=== PATIENT | female | born 1975 | race Caucasian/White ===

== ENCOUNTER → 2020-05-24 01:17 | Outpatient (CLI) | payer OTHER, SELFPAY ==
[2020-05-24 19:42] LABS: SARS-CoV-2 RNA PCR Negative
== END ==
PROVIDERS: PCP Family Medicine; Visit Provider Obstetrics & Gynecology
DX: Z01.812 Encounter for preprocedural laboratory examination (principal); Z20.822 Contact with and (suspected) exposure to COVID-19
CPT/HCPCS: C9803; U0003; U0005

== ENCOUNTER 2020-05-28 00:39 | Day surgery (SDC) | payer OTHER, SELFPAY ==
[2020-05-19 15:55] VITALS: BMI 47.8
[2020-05-28] VITALS (11 sets, daily range): BP systolic 120–145; BP diastolic 62–81; PULSE 69–91; RESP 16–20; TEMP 36.2–36.9; O2SAT 93–100
[2020-05-28] MEDS: LACTATED RINGERS 1,000 ML 30 ML IV CONT ×2 (11:08→14:01)
[2020-05-28] MEDS: KETOROLAC 15 MG/ML VIAL (*BKC) IV PUSH (11:44)
[2020-05-28] MEDS: ACETAMINOPHEN 500 MG TABLET 1000 MG PO (11:44)
--- NOTE | 2020-05-28 12:24 | WPDHPUPDATE1 ---
History and Physical Update Update Date/Time: 05/28/20 12:24 History and Physical has been reviewed, including an updated exam of the patient. There are NO changes in the patient's condition. Risks, benefits, and alternatives have been discussed and questions answered. Patient agrees to proceed with procedure.
--- NOTE | 2020-05-28 12:28 | WPDANESEPPF ---
Anes - Initial Pre Proc Eval Procedure: Operation Date: 05/28/20 12:00 Proposed Procedures p Hysteroscopy with Endometrial Ablation, - Tatiana Norton MD s Laparoscopic Bilateral Tubal Sterilization with Cautery - Tatiana Norton MD Date/Time: 05/28/20 12:28 Surgeon: Tatiana Norton MD Pre Op Diagnosis: menorrhaghia Patient Data Age: 44 Gender: F Height: 5 ft 3 in Weight: 123.7 kg Last Vital Signs Temp 36.9 C 05/28/20 10:54 Pulse 91 05/28/20 10:54 Resp 18 05/28/20 10:54 BP 145/81 H 05/28/20 10:54 Pulse Ox 99 05/28/20 10:54 Allergies Allergy/AdvReac Type Severity Reaction Status Date / Time No Known Allergies Allergy Mild Verified 05/28/20 11:10 Home Medications Medication Instructions Recorded Confirmed Type aspirin 81 mg PO DAILY 05/19/20 05/28/20 History cholecalciferol (vitamin D3) 25 mcg PO DAILY 05/19/20 05/28/20 History norgestimate-ethinyl estradiol 1 tablet PO DAILY 05/19/20 05/28/20 History [Sprintec (28)] valacyclovir 1,000 mg PO DAILY PRN 05/19/20 05/28/20 History vitamin B complex [B 1 tablet PO DAILY 05/19/20 05/28/20 History Complex-Vitamin B12] Patient hx anesthesia problems: none Family hx anesthesia problems: none PMFSH Past Medical History Medical History Fever blister Family History Family History Grandparent Diabetes mellitus, Onset Age: 60 Family history of cardiovascular disease Carcinoma of colon Malignant neoplasm of prostate Family history of malignant neoplasm of cervix Family history of malignant neoplasm of uterus Mother Family history of obesity Hypertension Patient's mother is in good health Family history of elevated blood lipids Sibling Patient's brother is in good health Father Family history of cardiovascular disease, Onset Age: 43 Social History Social History Smoking packs per day: 0.5 Smoking cigarettes per day: 10.0 Years smoked: 10 Smoking pack-years: 5.00 Smoking status: Former smoker Tobacco type: cigarettes Alcohol intake: current Last use: 11/26/08 Living arrangements: with family Spiritual care concerns: No Anes - Eval Final PreProcedure Day of Procedure 05/28/20 12:28 Patient weight: morbidly obese Heart: regular rate and rhythm Lungs: clear to auscultation Airway: Mallampati scale class II Neurological: alert and oriented Last oral intake: >/= 8 hours ASA classification: III Emergent: no Anesthetic plan: proceed Anesthesia type and monitoring: general ETT and standard monitoring Informed Consent: The patient's anesthetic plan and its attendant risks and benefits were discussed with the patient/family/POA. Questions were solicited and answers provided to the satisfaction of the patient/family/POA.
--- NOTE | 2020-05-28 13:54 | PM.PROC ---
Procedure Note - Detailed Date of procedure: 05/28/20 Pre-op diagnosis: menorrhaghia Post-op diagnosis: same Procedure performed: Laparoscopic bilateral tubal ligation, Endometrial Ablation Description of procedure: Patient was taken the operating room. She has prepped draped in the dorsal lithotomy position after induction of general anesthesia. A 5 mm abdominal incision was made in left upper quadrant of the abdomen with scalpel. A 5 mm trocars inserted the intra-abdominal cavity under direct visualization of the scope. Pneumoperitoneum was achieved. A 5 mm periumbilical incision was made using a scalpel on the abdominal scan. A 5 mm trocar was inserted the intra-abdominal cavity under visualization of the scope. The fallopian tube was grasped with the bipolar cautery in the ampullary region. It was completely desiccated in a 1.5 cm area of the fallopian tube. This was performed in identical fashion on the contralateral side. The instruments were withdrawn. The pneumoperitoneum was reduced. The trocars were removed. The skin was closed with subcuticular 4 Monocryl. This incisions were covered with Dermabond. Our attention was then turned to the endometrial ablation portion of the procedure. A speculum was placed in the vagina. The cervix was grasped with a tenaculum. The cervix was dilated to approximately 8 mm with Javier dilators. The hysteroscope was inserted. And the below findings were noted. Measurements of the cervix were taken using the uterine sound and the hysteroscope. The intrauterine cavity measurements were entered into the hand piece of the device. The device was inserted the intrauterine cavity. The array was expanded. The balloon cuff was inflated. The uterus was airtight. The energy and safety cycles within initiated. They were completed under 3 minutes. The balloon cuff was collapsed, the array was collapsed, and the device was removed the uterine cavity. the hysteroscope was reinserted and the cavity was well desiccated, it was clearly observed. Hysteroscope was withdrawn. The tenaculum was removed. The speculum was removed. The patient tolerated the procedure well. She was taken to recover room in stable condition. Anesthesia: GETA Surgeon: Tatiana Norton MD Estimated blood loss (mL): 10 Drains: No Packing: No Pathology: none sent Complications: No immediate complications Condition: stable Disposition: PACU Findings: Normal female pelvic anatomy.
[2020-05-28] MEDS: ONDANSETRON INJ 4 MG/2 ML VIAL IV PUSH (14:37)
[2020-05-28] MEDS: SCOPOLAMINE 1.5 MG PATCH TRANSDERM (14:55)
[2020-05-28] MEDS: diphenhydrAMINE HCl INJ 50 MG/ML VIAL 25 MG IV PUSH (14:59)
[2020-05-28] MEDS: fentaNYL CITRATE INJ (*CRX) 100 MCG/2 ML VIAL 25 MCG IV PUSH ×2 (15:07→16:11)
[2020-05-28] MEDS: oxyCODONE HCL (*CRX) 5 MG TAB IR PO (16:04)
[2020-05-28] MEDS: diphenhydrAMINE HCl INJ 50 MG/ML VIAL 12.5 MG IV PUSH (16:32)
== END 2020-05-28 17:15 | disposition home or self-care (01) ==
PROVIDERS: PCP Family Medicine; Visit Provider Obstetrics & Gynecology
PROC: 0U5B8ZZ Destruction of Endometrium, Via Natural or Artificial Opening Endoscopic (ICD-10-PCS; CPT 58563; principal; 2020-05-28 12:00)
PROC: (CPT 58671; 2020-05-28 12:00)
DX: N92.0 Excessive and frequent menstruation with regular cycle (principal); Z30.2 Encounter for sterilization; Z87.891 Personal history of nicotine dependence; E66.01 Morbid (severe) obesity due to excess calories; Z68.42 Body mass index [BMI] 45.0-49.9, adult
CPT/HCPCS: 58563; 58670; A9270; J0330; J1100; J1200; J1885; J2250; J2405; J2704; J2710; J3010; J7030; J7120

== ENCOUNTER 2021-12-25 07:33 | Outpatient (CLI) | payer OTHER, SELFPAY ==
[2021-12-25 08:22] LABS: Hematocrit 42.7 % (37.0-47.0); Hemoglobin 14.2 g/dL (12.0-15.0); Mean Corpuscular HGB Conc 33.3 g/dl (32-36); Mean Corpuscular Hemoglobin 30.1 pg (26-34); Mean Corpuscular Volume 90.7 fl (80-100); Mean Platelet Volume 10.5 fl (7.4-10.4); Platelet Count Result 267 k/mm3 (150-375); Red Blood Count 4.71 M/mm3 (4.2-5.4); Red Cell Distribution Width 14.3 % (11.5-14.5); White Blood Count 8.4 K/mm3 (4.5-10.0)
[2021-12-25 08:31] LABS: Alanine Aminotransferase 22 U/L (6-35); Albumin Level 4.4 g/dL (3.5-5.1); Alkaline Phosphatase 90 U/L (38-126); Anion Gap 9 mmol/L (8-16); Aspartate Amino Transferase 22 U/L (14-36); Bilirubin,Total 0.5 mg/dL (0.2-1.3); Blood Urea Nitrogen 10 mg/dL (7-17); Calcium 10.2 mg/dL (8.4-10.2); Carbon Dioxide 28 mmol/L (22-30); Chloride 101 mmol/L (98-107); Cholesterol 186 mg/dL (0-200); Estimated Glomerular Filt Rate > 60; Glucose 103 mg/dL (65-110); HDL Direct 64 mg/dL; Potassium 3.9 mmol/L (3.4-5.0); Sodium 138 mmol/L (137-145); Triglycerides 73 mg/dL (<150)
[2021-12-25 08:40] LABS: LDL Cholesterol Direct 99 mg/dL
[2021-12-25 08:44] LABS: Appearance Urine Clear (Clear); Bilirubin Urine Negative (Negative); Blood Urine Negative (Negative); Color Urine Yellow (Yellow); Glucose Urine UA Negative (Negative); Ketones Urine Negative (Negative); Leukocyte Esterase Ur Negative LEU/UL (NEGATIVE); Nitrate Urine Negative (Negative); Protein Urine Negative (Negative); Urobilinogen Urine 0.2 mg/dL (<2.0)
[2021-12-25 08:49] LABS: Add Urine Microscopic? NO
== END 2021-12-25 07:34 | disposition home or self-care (01) ==
LOC: ANHLAB 07:35
PROVIDERS: Visit Provider Family Medicine
DX: Z00.00 Encounter for general adult medical examination without abnormal findings (principal); E53.8 Deficiency of other specified B group vitamins; E78.2 Mixed hyperlipidemia
CPT/HCPCS: 36415; 80053; 80061; 81003; 82607; 84443; 85027

== ENCOUNTER 2022-08-19 07:15 | Outpatient (CLI) | payer OTHER, SELFPAY ==
[2022-08-19 08:58] LABS: Anion Gap 4 mmol/L (8-16); Blood Urea Nitrogen 13 mg/dL (7-17); Calcium 9.2 mg/dL (8.4-10.2); Carbon Dioxide 32 mmol/L (22-30); Chloride 101 mmol/L (98-107); Estimated Glomerular Filt Rate > 60; Glucose 92 mg/dL (65-110); Potassium 4.5 mmol/L (3.4-5.0); Sodium 137 mmol/L (137-145)
== END 2022-08-19 07:16 | disposition home or self-care (01) ==
PROVIDERS: Visit Provider Family Medicine
DX: R60.9 Edema, unspecified (principal)
CPT/HCPCS: 36415; 80048

== ENCOUNTER 2023-03-11 13:20 | Outpatient (CLI) | payer OTHER, SELFPAY ==
--- NOTE | ~2023-03-11 | MM_ITS ---
EXAMINATION: MM screening ricardo BI w saul HISTORY: Screening TECHNIQUE: Craniocaudal and mediolateral oblique 3-D tomosynthesis images were obtained and synthetic 2-D images were generated. CAD analysis was submitted and interpreted. COMPARISON: Comparison to multiple prior studies sequentially, with oldest reviewed study dated 11/17. BREAST PARENCHYMAL COMPOSITION: Breast composed of scattered areas of fibroglandular density FINDINGS: There is no evidence of suspicious mass, calcification, or architectural distortion to sugg est malignancy in either breast. There has been no suspicious interval change. IMPRESSION: 1. No mammographic evidence of malignancy. 2. Recommend routine screening mammography in one year. BI-RADS Category 1: Negative Reviewed, dictated and finalized at location A. 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
== END 2023-03-11 13:21 | disposition home or self-care (01) ==
LOC: ANHIMG 13:24
PROVIDERS: PCP Family Medicine; Visit Provider Advanced Practice Midwife
DX: Z12.31 Encounter for screening mammogram for malignant neoplasm of breast (principal)
CPT/HCPCS: 77063; 77067

== ENCOUNTER → 2024-01-16 08:06 | Outpatient (CLI) | payer OTHER, SELFPAY ==
--- NOTE | ~2024-01-16 | XR_ITS ---
Left foot Technique: AP, oblique, and lateral views were obtained. Clinical History: Great toe injury Findings: There is a probable acute, nondisplaced fracture the proximal portion of the distal phalanx of the great toe, with possible intraarticular extension. No other fracture or dislocation seen. Jennie nt spaces are preserved without erosive or degenerative change. Soft tissues are unremarkable. Impression: Suspected acute, subtle, nondisplaced fracture of the distal phalanx of the great toe, as detailed ab jacee. Reviewed, dictated and finalized at location M. Impression: Suspected acute, subtle, nondisplaced fracture of the distal phalanx of the gre at toe, as detailed above.
== END ==
PROVIDERS: PCP Family Medicine; Visit Provider Family Medicine
DX: M79.675 Pain in left toe(s) (principal)
CPT/HCPCS: 73630

== ENCOUNTER 2024-04-13 08:35 | Outpatient (CLI) | payer OTHER, SELFPAY ==
[2024-04-13 10:15] LABS: Basophils Absolute Auto 0.1 K/mm3 (0.0-0.1); Basophils Percent Auto 1.1 % (0.2-1.2); Eosinophils Absolute Auto 0.2 K/mm3 (0-0.3); Eosinophils Percent Auto 1.8 % (0-4.4); Hematocrit 44.8 % (37.0-47.0); Hemoglobin 14.9 g/dL (12.0-15.0); Immature Granulocyte Absolute 0.04 K/mm3 (0.00-0.031); Immature Granulocyte Percent A 0.5 % (0-0.5); Lymphocytes Absolute Auto 1.99 K/mm3 (0.9-3.2); Lymphocytes Percent Auto 22.5 % (18.3-44.2); Mean Corpuscular HGB Conc 33.3 g/dl (32-36); Mean Corpuscular Hemoglobin 29.9 pg (26-34); Mean Platelet Volume 10.8 fl (7.4-10.4); Monocytes Absolute Auto 0.4 K/mm3 (0.1-0.6); Monocytes Percent Auto 4.2 % (2.6-8.5); Neutrophils Absolute Auto 6.2 K/mm3 (1.3-6.7); Neutrophils Percent Auto 69.9 % (45.5-73.1); Platelet Count Result 265 k/mm3 (150-375); Red Blood Count 4.98 M/mm3 (4.2-5.4); Red Cell Distribution Width 13.6 % (11.5-14.5); White Blood Count 8.8 K/mm3 (4.5-10.0)
[2024-04-13 10:32] LABS: Alanine Aminotransferase 16 U/L (6-35); Albumin Level 4.3 g/dL (3.5-5.1); Alkaline Phosphatase 85 U/L (38-126); Anion Gap 9 mmol/L (4-12); Aspartate Amino Transferase 19 U/L (14-36); Bilirubin,Total 0.7 mg/dL (0.2-1.3); Blood Urea Nitrogen 10 mg/dL (7-17); Calcium 9.5 mg/dL (8.4-10.2); Carbon Dioxide 28 mmol/L (22-30); Chloride 101 mmol/L (98-107); Cholesterol 188 mg/dL (0-200); Estimated Glomerular Filt Rate > 60; Glucose 83 mg/dL (65-110); Sodium 138 mmol/L (137-145); Triglycerides 61 mg/dL (<150)
[2024-04-13 10:41] LABS: HDL Direct 71 mg/dL
[2024-04-13 10:50] LABS: LDL Cholesterol Direct 96 mg/dL
[2024-04-13 11:07] LABS: Free T4 Free Thyroxine 0.94 ng/dL (0.78-2.19)
[2024-04-13 11:17] LABS: Vitamin D 25 Hydroxy < 12.8 ng/mL
[2024-04-14 10:09] LABS: Progesterone 0.5 ng/mL
[2024-04-14 16:24] LABS: FSH 20.2 mIU/mL; LH 21.7 mIU/mL
--- OUTSIDE RECORDS SUMMARY | 2024-04-19 05:38 | XMS_ITS | Data Portability ---
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 Patient will come back in a year unless there are new symptoms. Suggest Calcium with Vitamin D if not eating in diet. Patient advised to get annual flu shot. Recommend yearly physicals and preform monthly breast exams. Genetic testing is available for patients with family history of cancer. Engage in safe sexual practices, use condoms. Encouraged to have daily exercise. Avoid tobacco and illicit drugs, moderation of alcohol. If BMI greater than 25 dietary consult advised. If you have any questions please call or email. to call if desires appt with beer to discuss hysterectomy Not available 06/26/2021 14:15:01 07/07/2022 07/07/2022 Suggest Calcium with Vitamin D if not eating in diet. Patient advised to get annual flu shot. Recommend yearly physicals and preform monthly breast exams. Genetic testing is available for patients with family history of cancer. Engage in safe sexual practices, use condoms. Encouraged to have daily exercise. Avoid tobacco and illicit drugs, moderation of alcohol. If BMI greater than 25 dietary consult advised. If you have any questions please call or email. Annual gynecological exam performed. Patient will come back in a year unless there are new symptoms. [email or web address] Not available 07/07/2022 13:04:20 03/09/2024 03/09/2024 Annual gynecological exam performed. Patient will come back in a year unless there are new symptoms. Take Calcium with Vitamin D 1200mg daily if not receiving in daily diet. It is strongly advised to have an annual flu shot and up can obtain at most pharmacies. If you have not had a TDap shot in the last 10 years you should obtain one as well. Discussed with patient & provided with information regarding Gardisil vaccine to prevent the 4 strains for HPV that cause cervical cancer if under age 26. Encourage safe sexual practices, to use condoms and limit partners if not already in a monogamous relationship. Do monthly self breast exams. Have mammogram yearly or every other year depending on family history. BRCA testing is now available for patients with strong genetic history of female cancer. If interested contact the office. Engage in daily exercise of low impact aerobic exercise 45-60 minutes 4-5 times weekly. Avoid tobacco and illicit drugs as well as using moderation with alcohol intake less than 1-2 8 oz beverages daily. This lifestyle behavior pattern will lead to less health conditions and longer life span. If BMI greater than 25 weight watchers or dietary consult advised. Patient received above instructions, and questions have been answered. If you have any questions please call or respond to this email. Patient was made aware of the patient portal and may obtain a paper copy of today's plan if desired. pap collected Not available 03/09/2024 12:09:15 Plan of Treatment Reminders Order Date Submit Date Provider Last Modified By Organization Details Last Modified Time Details Appointments [facility] 2024 10:00A M Dotty Anand CNM Not available Not available Not available Lab CBC w/ auto diff [email or web address] [place] [address] (Lab), [address] [place] [address], [id number], 04/02/2024 12:59:43 CMP, serum or plasma 2023 024 [facility] (Lab), [address] [place] [address], [id number], 04/13/2024 13:33:54 lipid panel, serum 2023 024 [facility] (Lab), [address] [place] [address] [place], [address], 04/13/2024 15:59:17 vitamin D, 25-hydrox y, total, serum [address] (Lab), [address] [place] [address] [address], [place], [address], 04/02/2024 13:00:18 lh + FSH, serum 2023 024 [facility] (Lab), [address] [place] [address] [address], [place], [address], 04/15/2024 10:35:51 progester one, serum [address] (Lab), [address] [place] [address] [address], [place], [address], 04/02/2024 13:00:45 TSH + free T4, serum 2023 024 [facility] (Lab), [address] [place] [address] [address], [place], [address], 04/13/2024 15:59:17 Referral None recorded. Procedures None recorded. Surgeries None recorded. Imaging MAMMO, screening , digital, bilateral 2022 023 [facility], [address], [place], [address], 03/11/2023 14:57:01 MAMMO, screening , bilateral [address] - [facility], [address], [place], [address], 03/09/2024 12:31:50 Medication Orders None recorded. Patient TargetsNo targets recorded. Patient InstructionsNo instructions recorded. Reason for Referral None Reported. Results Created Date Observation Date Name Description Value Unit Range Abnormal Flag Note LastModifiedBy Organization Detail LastModifiedTime 05/09/19 21 05/09/2020 pregn viridiana test, urine HCG negati ve Not Available [place], [place], [address], 05/09/2020 14:22:02 07/08/19 23 07/07/2022 IMAGE GUIDE D PAP AND HPV REGAR DLESS image guided Pap, HPV regardless of Pap result SEE RESULT S BELOW CASE REPOR T: Cytol ogy Gynec ologi lexus Repor t Case: [id number] Autho martínez alexys Provi gaby: Dotty Clayton, SHANTAL Colle cted: 07/07 1724 Order ing Locat ion: [place] [facility] Recei jacek: 07/08 0624 First Scree n: Pradeep beltre, Conner ayala, CT Rescr een: Megan Thomas , CT Speci men: Carlyn ag Pap - Image d, Cervi x STATE MENT OF ADEQU ACY: Satis facto ry for evalu ation Trans forma tion zone compo nent absen t The absen ce of an endoc ervic al compo nent was confi rmed by an addit ional carlyn ner. FINAL DIAGN OSIS: Negat stefan for Intra epith elial Lesio n or Malvioleta scott (NIL) . Shift in manasa sugge stive of bacte rial vagin osis. Elect deepti prabhakar d by Megan Thomas , CT on 2022 at 11:36 AM ----- ----- ----- ----- ----- ----- ----- ----- ----- ----- ----- ----- ----- ----- ----- ----- ----- ---- HPV RESUL TS: HPV mRNA E6/E7 : No HPV mRNA Detec ruby NOTE: This high risk HPV mRNA assay detec ts fourt een high- risk HPV types (16, 18, 31, 33, 35, 39, 45, 51, 52, 56, 58, 59, 66, 68) witho ut diffe renti ation . COMME NT: This speci men was revie wed by a Cytot echno logis t and/o r Patho logis t (as indic ated in this repor t) after evalu ation using the Thinp rep Imagi ng Syste m. CLINI LEXUS INFOR MATIO N: Menst rual Statu s: LMP (if appli cable ): Clini lexus Histo ry/Pr eviou s Pap: Type of Neopl lori (if appli cable ): Signi fican t Clini lexus Findi ngs: Other Histo ry: Hormo susi (if appli cable ): PAP EDUCA SINDHU L NOTE: The Pap Test is a scree kimberli test with an inher ent false negat stefan rate. Liqui d-bas ed sampl ing may decre ase, but will not elimi gustavo, false negat stefan resul ts. A negat stefan resul t does not precl ude the prese nce and/o r devel opmen t of disea se, since the prese nce of abnor mal cells in the sampl e depen ds on the locat ion of the lesio n and sampl ing techn ique. Aleksandr nued regul ar scree kimberli is the best metho d of cance r preve ntion . If repor ruby cytol ogic findi ng do not corre late with physi lexus and/o r histo rical findi ngs, furth er inves tigat ion is recom es d, as clini santhosh maya nted. Not Available [facility] (Lab) [address], [place], [address], 07/12/2022 12:39:42 03/09/20 24 03/09/2024 IMAGE GUIDE D PAP AND HPV REGAR DLESS image guided Pap, HPV regardless of Pap result SEE RESULT S BELOW CASE REPOR T: Cytol ogy Gynec ologi lexus Repor t Case: [id number] Autho martínez reardon Provi gaby: Dotty Clayton, SHANTAL Roberts cted: 03/09 1633 Order ing Locat ion: [place] [facility] [place] Recei jacek: 03/10 0212 First Scree n: Noora ni, Moham ed, CT Speci men: Scree kimberli Pap - Image d, Cervi x STATE MENT OF ADEQU ACY: Satis facto ry for evalu ation Trans forma tion zone compo nent absen t ----- ----- ----- ----- ----- ----- ----- ----- ----- ----- ----- ----- ----- ----- ----- ----- ----- ---- FINAL DIAGN OSIS: Negat stefan for Intra epith elial Lesio n or Bina scott (NIL) . Shift in manasa sugge stive of bacte rial vagin osis. Elect deepti hand by Clarice morris, CT on 03/19 at 2110 EDGE GRINDER ----- ----- ----- ----- ----- ----- ----- ----- ----- ----- ----- ----- ----- ----- ----- ----- ----- ---- HPV RESUL TS: HPV mRNA E6/E7 : No HPV mRNA Detec ruby NOTE: This high risk HPV mRNA assay detec ts fourt een high- risk HPV types (16, 18, 31, 33, 35, 39, 45, 51, 52, 56, 58, 59, 66, 68) witho ut diffe renti ation . COMME NT: Slide scree nawaf cullena lly due to rejec tion by the Thinp rep Imagi ng Syste m. CLINI LEXUS INFOR MATIO N: Menst rual Statu s: LMP (if appli cable ): Clini leuxs Histo ry/Pr eviou s Pap: Type of Neopl lori (if appli cable ): Signi ficted t Clini lexus Findi ngs: Other Histo ry: Hormo susi (if appli cable ): PAP EDUCA SINDHU L NOTE: The Pap Test is a scree kimberli test with an inher ent false negat stefan rate. Liqui d-bas ed sampl ing may decre ase, but will not elimi gustavo, false negat stefan resul ts. A negat stefan resul t does not precl ude the prese nce and/o r devel opmen t of disea se, since the prese nce of abnor mal cells in the sampl e depen ds on the locat ion of the lesio n and sampl ing techn ique. Aleksandr nued regul ar scree kimberli is the best metho d of cance r preve ntion . If repor ruby cytol ogic findi ng do not corre late with physi lexus and/o r histo rical findi ngs, furth er inves tigat ion is recom es d, as clini santhosh maya nted. Not Available [facility] (Lab) [address], [place], [address], 03/19/2024 22:14:25 03/11/20 23 03/11/2023 MAMMO , scree kimberli, digit al, bilat eral No observ ation record ed. [facility] [address], [place], [address], 03/11/2023 16:48:36 Result Notes None recorded. Problems Name Problem SNOMED Code Status Onset Date Resolution Date Notes Provider Name and Address Organization Details Recorded Time SNOMED CT Concept Completed 201704/04/2020 Encntr for general adult medical exam w/o abnormal findings ;Recorde d Elsewher e: No Locat ion: [facility] S ource: EHR Food And Nutrition Supervisor gauri: N Dhaval ce ID: 0001 Michel lable Time: 03:30:00 PM Loree solis [facility] 11:33:24 Removal of intraute rine device Completed 201104/04/2020 REMOVAL OF IUD;Jose rded Elsewher e: No Locat ion: [facility] S ource: EHR Food And Nutrition Supervisor gauri: Dmitry Puentes ce ID: 0001 Michel lable Time: 02:00:00 PM Loree solis [facility] 11:33:17 Body mass index 30+ - obesity [id number] Completed 201704/04/2020 Body mass index (BMI) 45.0-49. 9, adult;Re corded Elsewher e: No Locat ion: [facility] S ource: EHR Food And Nutrition Supervisor gauri: N Practi ce ID: 0001 Michel lable Time: 03:30:00 PM Loree Morales irma [facility] 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 11:35:27 Screenin g for malignan t neoplasm of rectum Completed 201504/04/2020 Encounte r for screenin g for malignan t neoplasm of rectum;R ecorded Elsewher e: No Locat ion: [facility] S ource: EHR Food And Nutrition Supervisor gauri: N Obieti ce ID: 0001 Michel lable Time: 03:00:00 PM Loree solis [facility] 11:33:[address] Concept Completed 201504/04/2020 Well woman check w/ abnormal finding; Recorded Elsewher e: No Locat ion: [facility] S ource: EHR Food And Nutrition Supervisor gauri: N Practi ce ID: 0001 Michel lable Time: 03:00:00 PM Loree Morales irma [facility] 11:33:28 Screenin g for malignan t neoplasm of cervix Completed 201104/04/2020 Screenin g for malignan t neoplasm s of the cervix;R ecorded Elsewher e: No Locat ion: [facility] S ource: EHR Food And Nutrition Supervisor gauri: N Practi ce ID: 0001 Michel lable Time: 02:00:00 PM Loree Morales irma, [facility] 1 11:33:19 Adult health examinat ion Completed 201404/04/2020 ROUTINE MEDICAL EXAM;Rec orded Elsewher e: No Locat ion: [facility] S ource: EHR Food And Nutrition Supervisor gauri: N Practi ce ID: 0001 Michel lable Time: 03:30:00 PM Loree Morales irma, [facility] 11:33:10 Obesity [id number] Completed 201304/04/2020 Obesity; Recorded Elsewher e: No Locat ion: [facility] S ource: EHR Food And Nutrition Supervisor gauri: N Practi ce ID: 0001 Michel lable Time: 11:30:00 AM Loree Morales irma, [facility] 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 1 11:35:24 Acute vaginiti s [id number] Completed 201504/04/2020 Vaginiti s;Record ed Elsewher e: No Locat ion: [facility] S ource: EHR Food And Nutrition Supervisor gauri: N Practi ce ID: 0001 Michel lable Time: 03:15:00 PM Loree solis, [facility] 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 4 11:33:17 Problem Notes None recorded. Procedures Surgical History Date Name Laterality Status Provider Name and Address Organization Details Recorded Time 03/09/20 24 Date of Last Pap Smear completed Loree Morales [facility] 03/09/2024 11:34:02 03/11/20 23 Date of Last Mammogram completed Loree Morales [facility] 03/09/2024 11:34:44 05/29/19 21 LAPAROSCOPIC TUBAL LIGATION AND ABLATION (SURG) completed Lesli Mccrary [facility] 05/29/2020 11:39:44 05/09/19 21 Endometrial Biopsy completed Baron Smith MD [address], [place], [address], [facility] 05/09/2020 14:23:28 07/12/19 10 section completed Loree Morales [facility] 04/04/2020 19:34:59 Imaging Results Imaging Date Name Status LastModified by Organiz ation Details LastModified Time 03/11/2023 MAMMO, screening, digital, bilateral completed [facility] [address], [place], [address], 03/11/2023 16:48:36 Procedure Notes None recorded. Medical Equipment None Reported. Allergies No known drug allergies Medications Name Sig Start Date Stop Date Status Note LastModified by Organization Details LastModified Time prednison e 10 mg tablet 03/09 completed Not Available Not Available Not Available azithromy wilder 250 mg tablet TAKE 2 TABLETS BY MOUTH ON DAY 1, AND THEN TAKE 1 TABLET BY MOUTH ONCE A DAY ON DAY 2 THROUGH DAY 5 07/07 completed Not Available Not Available Not Available hydrocort isone valerate 0.2 % topical cream 06/26 completed Not Available Not Available Not Available valacyclo vir 1 gram tablet TK 1 T PO D active Not Available Not Available No t Available hydrocodo ne 5 mg-acetam inophen 325 mg tablet TAKE 1 TO 2 TABLETS BY MOUTH EVERY 4 HOURS NEEDED FOR PAIN (MAX 8 TABLETS PER DAY) 06/26 completed Not Available Not Available Not Available meloxicam 15 mg tablet TAKE 1 TABLET BY MOUTH DAILY NEEDED FOR PAIN. DO NOT. START UNTIL ALL TAKEN WITH PREDNISO NE active Not Available Not Available No t Available prednison e 20 mg tablet 06/26 completed Not Available Not Available Not Available Diflucan 150 mg tablet take 1 tablet (150MG) by oral route once 11/02 completed Prescrib ed Elsewher e: No Locat ion: [facility] odify By: christofer cortez DateTime : 04/15/19 12 02:00:46 PM Not Available Not Available Not Available ciproflox acin 500 mg tablet TAKE 1 TABLET BY MOUTH EVERY 12 HOURS 03/09 completed Not Available Not Available Not Available sulfameth oxazole 800 mg-trimet hoprim 160 mg tablet TAKE 1 TABLET BY MOUTH EVERY 12 HOURS 07/07 completed Not Available Not Available Not Available triamcino lone acetonide 0.1 % topical cream APPLY CREAM EXTERNAL LY TWICE DAILY NEEDED FOR ITCHING 03/09 completed Not Available Not Available Not Available Metrogel Vaginal 0.75 % (37.5 mg/5 gram) insert 1 applicat orful by vaginal route every day at bedtime 02/05 completed Prescrib ed Elsewher e: No Locat ion: [facility] By: reba Dodge ncounter DateTime : 06/24/19 16 10:29:51 AM Not Available Not Available Not Available nystatin 100,000 unit/gram topical cream APPLY CREAM TOPICALL Y TWICE DAILY 03/09 completed Not Available Not Available Not Available Ortho Tri-Cycle n (28) 0.18 mg(7)/0.2 15 mg(7)/0.2 5 mg(7)-35 mcg tablet take 1 tablet by oral route every day 02/20 completed Prescrib ed Elsewher e: No Locat ion: [facility] By: royce packerunter DateTime : 02/02/20 18 03:30:00 PM Not Available Not Available Not Available Asprin Ec Low Dose 81 mg tablet,de layed release Take 1 tablet every day by oral route. 06/26 completed Not Available Not Available Not Available Sprintec (28) 0.25 mg-35 mcg tablet TAKE 1 TABLET BY MOUTH ONCE DAILY 06/26 completed Not Available Not Available Not Available Vitals Date Recorded Body height Body mass index (BMI) Body weight Systolic blood pressure Diastolic blood pressure Provider Name and Address Organization Details Last Updated DateTime 06/06/2020 160.02 cm 49.1 kg/m2 689372.0 9 g 137 mm[Hg] 84 mm[Hg] Andreina Harmon [facility] 1 11:43:27 Date Recorded Body height Body mass index (BMI) Body weight Systolic blood pressure Diastolic blood pressure Provider Name and Address Organization Details Last Updated DateTime 06/26/2021 160.02 cm 49.1 kg/m2 427046.0 9 g 146 mm[Hg] 85 mm[Hg] Loree Morales [facility] 2 13:59:54 Date Recorded Body height Body mass index (BMI) Body weight Systolic blood pressure Diastolic blood pressure Provider Name and Address Organization Details Last Updated DateTime 07/07/2022 160.02 cm 48.9 kg/m2 135325.4 9 g 134 mm[Hg] 76 mm[Hg] Loree Morales [facility] 3 13:04:39 Date Recorded Body height Body mass index (BMI) Body weight Systolic blood pressure Diastolic blood pressure Provider Name and Address Organization Details Last Updated DateTime 03/09/2024 160.02 cm 47.3 kg/m2 687706.1 6 g 150 mm[Hg] 85 mm[Hg] Loree Morales [facility] 4 11:32:25 Social History Question Answer Notes LastModified by Organizat ion Details LastModified Time Tobacco Smoking Status [facility] 07/07/2022 12:24:58 Do You Have An Advance Directive? No Information not available 06/06/2020 What Is Your Level Of Alcohol Consumption? Occasional [email or web address] Information not available 04/04/2020 How Many Years Have You Consumed Alcohol? 24 Information not available 06/06/2020 Are You Blind Or Do You Have Difficulty Seeing? No Information not available 06/06/2020 What Is Your Level Of Caffeine Consumption? Moderate Information not available 06/06/2020 How Much Tobacco Do You Chew? None Information not available 06/06/2020 In The 14 Days Before Symptom Onset, Have You Had Close Contact With A Laboratory-confir med COVID-19 While That Case Was Ill? No Information not available 06/06/2020 In The 14 Days Before Symptom Onset, Have You Had Close Contact With A Person Who Is Under Investigation For COVID-19 While That Person Was Ill? No Information not available 06/06/2020 Have You Been To An Area Known To Be High Risk For COVID-19? No Information not available 06/06/2020 Are You Deaf Or Do You Have Serious Difficulty Hearing? No Information not available 06/06/2020 What Type Of Diet Are You Following? REGULAR Information not available 06/06/2020 Do You Or Have You Ever Used E-cigarettes Or Vape? Never Used Electronic Cigarettes [email or web address] Information not available 07/07/2022 What Is The Highest Grade Or Level Of School You Have Completed Or The Highest Degree You Have Received? 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 No Information not available 06/06/2020 What Was The Date Of Your Most Recent Tobacco Screening? 03/09/2024 [email or web address] Information not available 03/09/2024 Do You Use Protection During Sex? No Information not available 06/06/2020 Do You Use Your Seat Belt Or Car Seat Routinely? Yes Information not available 06/06/2020 Do You Have Smoke And Carbon Monoxide Detectors In Your Home? Yes Information not available 06/06/2020 Do You Or Have You Ever Used Smokeless Tobacco? Never Used Smokeless Tobacco [email or web address] Information not available 07/07/2022 How Much Tobacco Do You Smoke? No [email or web address] Information not available 04/04/2020 Do You Feel Stressed (tense, Restless, Nervous, Or Anxious, Or Unable To Sleep At Night)? [id number] Information not available 06/06/2020 Do You Use Any Illicit Or Recreational Drugs? No Information not available 06/06/2020 Do You Use Sunscreen Routinely? Yes Information not available 06/06/2020 Have You Used IV Drugs? No Information not available 06/06/2020 Sex: Unknown Functional Status Question Answer Note LastModified by Organizat ion Details LastModified Time Do you have difficulty walking or climbing stairs? No [email or web address] Information not available 07/07/2022 Are you able to walk? YESWOREST Information not available 06/06/2020 Are you able to care for yourself? Yes [email or web address] Information not available 07/07/2022 Do you have difficulty dressing or bathing? No [email or web address] Information not available 07/07/2022 What is your exercise level? Occasional [email or web address] Information not available 04/04/2020 Mental Status None recorded. Family History Relationship Description Onset Age of this Age Resolved Age Notes LastModified by Organization Details LastModified Time Maternal Grandmother Malignant neoplasm of uterus Not available 2020 09:51:35 Maternal Grandmother Malignant tumor of ovary Not available 2020 09:51:35 Maternal Grandmother Malignant tumor of colon Not available 2020 09:51:35 Maternal Grandmother Malignant neoplasm of uterus [email or web address] Not available 2023 10:50:34 Maternal Grandmother Malignant tumor of colon [email or web address] Not available 2023 10:50:34 Maternal Grandmother Malignant tumor of ovary [email or web address] Not available 2023 10:50:34 Maternal Grandfather Carcinoma of prostate [email or web address] Not available 2023 10:50:34 Mother Hypertensive disorder Not available 2020 09:51:35 Mother Hyperlipidem ia [email or web address] Not available 2023 10:50:34 Mother Hypertensive disorder [email or web address] Not available 2023 10:50:34 Father Hypertensive disorder Not available 2020 09:51:35 Father Heart disease Not available 2020 09:51:35 Father Diabetes mellitus Not available 2020 09:51:35 Father Heart disease [email or web address] Not available 2023 10:50:34 Father Diabetes mellitus [email or web address] Not available 2023 10:50:34 Father Hypertensive disorder Not available 2023 10:50:34 Paternal Grandfather Heart disease Not available 2020 09:51:35 Paternal Grandfather Congestive heart failure Not available 2023 10:50:34 Paternal Grandfather Heart disease [email or web address] Not available 2023 10:50:34 Paternal Grandmother Heart disease Not available 2020 09:51:35 Paternal Grandmother Congestive heart failure [email or web address] Not available 2023 10:50:34 Paternal Grandmother Heart disease [email or web address] Not available 2023 10:50:34 Maternal Uncle Malignant tumor of lung Not available 2020 09:51:35 Maternal Uncle Malignant tumor of lung [email or web address] Not available 2023 10:50:34 Paternal Uncle Malignant tumor of lung Not available 2020 09:51:35 Paternal Uncle Malignant tumor of lung Not available 2023 10:50:34 Medical History Condition Response Allergies (Food, seasonal, environmental ) N Other N Breast Cancer N Drug/Latex Allergies/Reactions N Blood Transfusion N Dermatologic Disorders N Lung Disease N Defects or Inherited Disease N Breast Problem N Gestational Diabetes N Hematologic disorders N Anesthesia Complications N History of STI Y Deep Vein Thrombosis N Polycystic ovary syndrome N Anxiety Disorder N Autoimmune disease N Arthritis N Infertility N Polyps N Acid Reflux (GERD) N History of abnormal pap N Cancer N Stroke N Varicosities N Neurologic/Epilepsy N Endometriosis N High Cholesterol N Headaches N Fibromyalgia N Kidney Disease N Heart Problems N Kidney or Bladder Problems N Thyroid Problems N GI Problems N Eating Disorder N Anemia N Art (IVF or FET) N Psychiatric Illness N Ovarian Cancer N Diabetes N Pulmonary (TB, Asthma) N Hepatitis/Liver Disease N Eczema N Urinary Tract Infection N Abuse/Domestic Violence N Asthma N Trauma/Violence N Depression/ depression N Heart Disease N Pre-Eclampsia N Hypertension N Osteoporosis N Thrombophilias N Gynecological History Statement/Question Response Date of Last Mammogram 03/11/2023 Date of LMP 03/05/2024 On BCP's at Conception? N Was last menstrual period normal N STIs/STDs Y HPV Vaccine N Duration of Flow (days) 5 Current Control Method Tubal Ligat ion Age at First Child 18 Date of control 05/28/2020 Frequency of Cycle (Q days) 29 Sexually Active? Y Date of DEXA bone scan Age of first menstrual cycle 12 Date of Last Pap Smear 03/09/2024 Sexual Problems? N Desired Control Method Ablation LMP Definite N Obstetrics History GPAL:G 2 P 2 0 0 2 Type Value Full Term 2 Living 2 Total 2 Past Encounters Encounter ID Performer Location Encounter Start Date Encounter Closed Date Diagnosis/Indication Diagnosis SNOMED-CT Code Diagnosis ICD10 Code Diagnosis Note [id number] Dotty Anand CNM [place] [address],[facility] [place] [address] 04/04/2020 10:46:21 04/04/2020 14:32:04 Gynecologic examination 75746000 Z01.419 Irregular periods 840153 07 N92.6 [id number] [facility] [address],[facility] [place] [address] 04/18/2020 12:26:21 04/18/2020 13:30:38 Abnormal uterine bleeding [id number] 9100 N93.9 [id number] Baron Smith MD [place] [address],[facility] [place] [address] 05/02/2020 09:40:54 05/02/2020 10:32:21 Menorrhagia 961601179 N92.0 this patient is a 44-year-ol d female presents for surgical consultati on. She is interested in endometria l ablation. Patient is currently on oral contracept stefan pills. She is aware that there is risk associated with this. She does have irregular bleeding off of oral contracept stefan pills. She has patent fallopian tubes. Her does not have a vasectomy. She has very heavy bleeding. She has accidents when she is off of oral contracept stefan pills. She changes pad or tampon every hour. It has affected her quality of life and activities of daily living. We talked about endometria l ablation in detail. We reviewed a video of the procedure. I explained out work. I explained the tubal ligation procedure. We talked about her abnormal bleeding. We talked about etiology of anovulator y bleeding. We talked about multiple complex concepts. We agreed to proceed with endometria l ablation and laparoscop ic bilateral tubal ligation. This will be scheduled at the hospital. Female sterilization 608 74195 Z30.2 [id number] Baron Smith MD [place] [address] [address] 05/09/2020 13:49:02 05/09/2020 14:28:24 Screening procedure 37985025 Z13.9 Menorrhagia 686680052 N9 2.0 endometria l biopsy performed. The patient tolerated it well. [id number] Baron Smith MD [place] [address] [address] 05/23/2020 12:16:29 05/23/2020 15:00:12 Menorrhagia 799729926 N92.0 endometria l biopsy performed. The patient tolerated it well. Female sterilization 608 10402 Z30.2 this patient is a 44-year-ol d female with menorrhagi a and unwanted fertility. We have agreed to perform laparoscop ic bilateral tubal ligation and endometria l ablation. She understand s the risk, benefits, and alternativ es. She has completed the informed consent process isn't ready to proceed. Additional precaution lópez measures were taken to minimize potential exposure to the Covid-19 virus during this patient? s visit, including available hand director of diagnostic imaging upon arrive, temperatur e check and being asked a series of screening questions. All staff wore face coverings during this encounter, as well as provided additional cleaning and sanitizing of all surfaces, including countertop s, pens, chairs, door handles, light switches, etc, prior to and following the patient? s visit. [id number] Baron Smith MD [place] [address],[place] [address] 05/29/2020 11:09:40 05/29/2020 11:11:26 [id number] Baron Smith MD [place] [address],[place] [address] 06/06/2020 11:37:01 06/06/2020 12:39:31 Postoperative care [id number] Z48.89 this patient is a 44-year-ol d female presents for postop follow-up. She is 1 week postop from laparoscop ic bilateral tubal ligation, endometria l ablation, hysterosco py. She is recovering normally. She has no complaints . She has a watery vaginal discharge that is resolving. She will follow-up as needed. [id number] Dotty Anand CNM [place] [address],[place] [address] 06/26/2021 13:35:16 06/26/2021 14:22:48 Gynecologic examination [id number] Z01.419 [id number] [facility] [address],[place] [address] 07/07/2022 12:23:00 07/07/2022 13:34:55 Gynecologic examination 84632342 Z01.419 Dysmenorrhea 161105462 N 94.6 plans hysterecto my consult with dr. smith [id number] Dotty Anand CNM [place] [address],[place] [address] 03/09/2024 10:43:08 03/09/2024 12:31:50 Screening mammography 14006023 Z12.31 Gynecologi c examination 42098269 Z01.419 Routine gy necologic examination done [id number] 9101 Z01.419 Z11.51 Health Concerns Section Related Observation LastModified by Organization Detai ls LastModified Time None Recorded Concern Status LastModified by Organization Details LastModified Time None Recorded Advance Directives Directive N: Payers Encounter Date Sequence Insurance Name Policy Number Policy Wolff Covered Member ID Wolff Member ID Guarantor Name 05/28/2020 1 [facility] ([facility] [id number] Loida K Orasco [id number] Loida K Orasco 06/06/2020 1 [facility] (O) [id number] Loida K Orasco [id number] Loida K Orasco 06/26/2021 1 [facility] ([facility]) [id number] Loida K Orasco [id number] Loida K Orasco 07/07/2022 1 [facility] (O) [id number] Loida K Orasco [id number] Loida K Orasco 03/09/2024 1 [facility] ([facility]) [id number] Loida K Orasco [id number] Loida K Orasco Notes Date Note Type Note Provider Name and Address Organization Details Recorded Time 06/06/2020 text/html this patient is a 44-year-old female presents for postop follow-up. She is 1 week postop from laparoscopic bilateral tubal ligation, endometrial ablation, hysteroscopy. She is recovering normally. She has no complaints. She has a watery vaginal discharge that is resolving. She will follow-up as needed. Baron Smith MD [address], [place], [address], [facility] 06/06/2020 12:14:34 06/26/2021 text/html Annual GYNReport ed bypatient.Menstrua l cycle:Normal menses Urinary symptoms:No hematuria; No incontinence Vulva:No genital lesion Vagina:Normal vaginal discharge Breast:No breast pain; No breast lump; No nipple discharge Current Contraception:Tuba l ligation Sexual complaints:No sexual complaints; No pain during intercourse; Normal libido Menopausal Symptoms:No menopausal symptoms; Normal vaginal lubrication Psychological symptoms:No depression; No anxiety; No PMDD Preventive measures:Encourage self breast examination; Encourage regular exercise; Encourage no tobacco use; Encourage regular mammograms starting age 40Notes:increased cramping since alation still heavy shorter in duration Dotty Anand CNM [address], [place], [address], [facility] 06/26/2021 14:16:09 07/07/2022 text/html Annual GYNReport ed bypatient.History: no change in interval history Menstrual cycle:heavy and crampy periods post ablation Breast:No breast pain; No breast lump; No nipple discharge Sexual complaints:No sexual complaints; No pain during intercourse; Normal libido Menopausal Symptoms:No menopausal symptoms; Normal vaginal lubrication Psychological symptoms:No depression; No anxiety; No PMDD Preventive measures:Encourage self breast examination; Encourage regular exercise; Encourage no tobacco use; Encourage regular mammograms starting age 40Notes:due for mammogram, Radha Swain[facility]ty [facility], [facility] 02/07/2023 14:21:09 03/09/2024 text/html Annual GYNReport ed bypatient.Menstrua l cycle:Severe dysmenorrhea Urinary symptoms:No hematuria; No incontinence Vulva:No genital lesion Vagina:Normal vaginal discharge Breast:No breast pain; No breast lump; No nipple discharge Sexual complaints:No sexual complaints; No pain during intercourse; Normal libido Menopausal Symptoms:No menopausal symptoms; Normal vaginal lubrication Psychological symptoms:No depression; No anxiety; No PMDD Preventive measures:Encourage self breast examination; Encourage regular exercise; Encourage no tobacco use; Encourage regular mammograms starting age 40; Followed with yearly pap smears; Mammogram performed within the past yearNotes:dint see beer for dysmenorrhea no time with hockey, would like hormones checked, cycle about 50 days apart last month Dotty Anand, [facility] [address], [place], [address], [facility] 03/09/2024 12:11:49 OBGyn Episode Ob Episode Information Episode Created Date Number of Fetuses Patient Bloodtype Patient rh Status Prepregnancy Weight lbs Domestic Partner Domestic Partner Phone Father Name Thimble [employer] Operator Status 04/04/19 21 1 CLOSED Fetus Data First Name Last Name Admitted to NICU Weight (g) Sex Living Outcome Pediatric Complications Fetus ID Race Codes Race Delivery Type 3742.13 4 F Full Term [id number] Vaginal Delivery Erwin Calculation Initial Erwin Date Initial Exam Date Initial Exam Provider Initial Ultrasound Date Last Menstrual Period Date Ultra Sound Weeks Gestation 0 Eighteen To Twenty Week Erwin Update Ultra Sound Date Fundal Height At Umbil Quickening Date Ultra Sound Latest Weeks Gestation Final Erwin Confirmed By Final Erwin Confirmed Date Final Erwin Date Ultra Sound Latest Days Gestation 0 0 Menstrual History Last Menstrual Date Menses Monthly On Bcp Conception Prior Menses Frequency Hcg Plus Date Menarche Onset Age Delivery Information Delivery Date Delivery Type Labor Anesthesia Weeks Gestation Incision Type Labor Labor Length Hrs Delivered By Post Complications Tubal Sterilization Discharge Date Comments 5 40 Discharge Information Feeding Method Contraceptive Method Maternal HG B and HCT Levels Ob Episode Information Episode Created Date Number of Fetuses Patient Bloodtype Patient rh Status Prepregnancy Weight lbs Domestic Partner Domestic Partner Phone Father Name Thimble Press Operator Status 04/04/19 21 1 CLOSED Fetus Data First Name Last Name Admitted to NICU Weight (g) Sex Living Outcome Pediatric Complications Fetus ID Race Codes Race Delivery Type 4252.42 5 M Full Term [id number] Primary Erwin Calculation Initial Erwin Date Initial Exam Date Initial Exam Provider Initial Ultrasound Date Last Menstrual Period Date Ultra Sound Weeks Gestation 0 Eighteen To Twenty Week Erwin Update Ultra Sound Date Fundal Height At Umbil Quickening Date Ultra Sound Latest Weeks Gestation Final Erwin Confirmed By Final Erwin Confirmed Date Final Erwin Date Ultra Sound Latest Days Gestation 0 0 Menstrual History Last Menstrual Date Menses Monthly On Bcp Conception Prior Menses Frequency Hcg Plus Date Menarche Onset Age Delivery Information Delivery Date Delivery Type Labor Anesthesia Weeks Gestation Incision Type Labor Labor Length Hrs Delivered By Post Complications Tubal Sterilization Discharge Date Comments 0 38 Discharge Information Feeding Method Contraceptive Method Maternal HG B and HCT Levels
== END 2024-04-13 08:36 | disposition home or self-care (01) ==
LOC: ANHLAB 08:37
PROVIDERS: PCP Family Medicine; Visit Provider Advanced Practice Midwife
DX: Z01.419 Encounter for gynecological examination (general) (routine) without abnormal findings (principal); Z11.51 Encounter for screening for human papillomavirus (HPV)
CPT/HCPCS: 36415; 80053; 80061; 82306; 83001; 83002; 84144; 84439; 84443; 85025

== ENCOUNTER → 2024-12-03 11:50 | Outpatient (CLI) | payer OTHER, SELFPAY ==
--- NOTE | ~2024-12-03 | XR_ITS ---
XR cervical spine 4-5V 12/03/2024 12:03 Indication: Cervicalgia Procedure: 6 views cervical spine Comparison: No prior studies for comparison. Findings: Straightening of cervical lordosis. There is disc narrowing at C6-7. No prevertebral soft tissue swelling. Odontoid process is normal. There is mild multilevel facet hypertrophy. Lung apices are normal. No acute fracture, subluxation or dislocation. Impression: 1: Mild cervical spondylosis. Reviewed, dictated and finalized at location O. Impression: 1: Mild cervical spondylosis.
== END ==
LOC: EXPTROY 11:51
PROVIDERS: PCP Family Medicine; Visit Provider Family Medicine
DX: M47.892 Other spondylosis, cervical region (principal)
CPT/HCPCS: 72050